=== PATIENT | female | born 1975 | race Caucasian/White ===

== ENCOUNTER 2024-07-31 07:37 | Emergency (ER) | payer OTHER ==
[~2024-07-31] VITALS: Ht 162.6 cm; Wt 67.7 kg
[2024-07-31 07:43] VITALS: TEMP 98.4
[2024-07-31] MEDS ORDERED: CEPH-558 PO (07:43)
[2024-07-31] MEDS: LIDOCAINE 1% 10 ML VIAL ID ONE (08:28)
[2024-07-31] MEDS: IBUPROFEN 400 MG TABLET PO ONE (08:28)
[2024-07-31] MEDS: ACETAMINOPHEN 325 MG TABLET PO ONE (08:28)
[2024-07-31] MEDS ORDERED: DOXY-354 PO (09:22)
[2024-07-31 09:48] VITALS: BP 116/78; PULSE 75; RESP 16; O2SAT 100
== END 2024-07-31 09:49 | disposition home or self-care (01) ==
LOC: EMS 07:45
DX: L02.511 Cutaneous abscess of right hand (principal)
CPT/HCPCS: 99283; 10060; J3490